=== PATIENT | male | born 1990 | race Caucasian/White ===

== ENCOUNTER 2016-08-21 19:06 | Emergency (ER) | payer SELFPAY ==
[~2016-08-21] VITALS: Ht 175.3 cm; Wt 102.7 kg
[~2016-08-21 19:06] MED LIST: DOXY100T PO; HYDR-3534 PO
[2016-08-21 19:12] VITALS: BP 112/45; PULSE 83; RESP 20; TEMP 98.5; O2SAT 97
[2016-08-21] MEDS ORDERED: SODIUM CHLOR 0.9% 1000 ML INJ 1,000 ML IV SCH (19:39)
--- NOTE | 2016-08-21 19:43 | PD ---
HPI Chief Complaint: Abdominal Pain Time Seen by Provider: 19:21 Travel History International Travel<30 days: No Contact w/Intl Traveler<30days: No Traveled to known affect area: No History of Present Illness HPI 25-year-old male here for evaluation of abdominal pain. The patient reports having left lateral quadrant abdominal pain for last 5 days. Initially the pain was intermittent, now more constant. He is unable to describe the pain, but states it is 7 out of 10, worse with movements and palpation. He denies nausea, vomiting, or diarrhea. No history of abdominal surgeries. No urinary symptoms. He did have a recent URI with cough/congestion, however states that these symptoms have improved. PFSH Past Medical History Asthma: Yes (as a child) Tetanus Vaccination: > 5 Years Influenza Vaccination: No Past Surgical History Surgical History: No Previous Surgery Social History Alcohol Use: Yes (RARE) Tobacco Use: Yes (12ppd) Substance Use: No Allergies-Medications (Allergen,Severity, Reaction): Coded Allergies: No Known Allergies (Unverified , 11/07/15) Reported Meds & Prescriptions Reported Meds & Active Scripts Active Protonix (Pantoprazole Sodium) 40 Mg Tab 40 Mg PO DAILY Review of Systems Except as stated in HPI: all other systems reviewed are Neg Physical Exam Narrative GENERAL: Well-developed, well-nourished, overweight, comfortable, no acute distress. SKIN: Focused skin assessment warm/dry. No rash. HEAD: Atraumatic. Normocephalic. EYES: Pupils equal and round. No scleral icterus. No injection or drainage. ENT: Mucous membranes pink and moist. NECK: Trachea midline. No JVD. CARDIOVASCULAR: Regular rate and rhythm. RESPIRATORY: No accessory muscle use. Clear to auscultation. Breath sounds equal bilaterally. GASTROINTESTINAL: Abdomen soft, nondistended. Mild left upper quadrant tenderness without peritoneal signs. Rest of abdomen is soft and nontender. No hernias. MUSCULOSKELETAL: No obvious deformities. No clubbing. No cyanosis. No edema. No CVA tenderness. NEUROLOGICAL: Awake and alert. No obvious cranial nerve deficits. Motor grossly within normal limits. Normal speech. PSYCHIATRIC: Appropriate mood and affect; insight and judgment normal. Data Data Last Documented VS Vital Signs Date Time Temp Pulse Resp B/P Pulse Ox O2 Delivery O2 Flow Rate FiO2 08/21/16 19:12 98.5 83 20 112/45 97 Orders Complete Blood Count With Diff (08/21/16 19:39) Comprehensive Metabolic Panel (08/21/16 19:39) Lipase (08/21/16:39) Prothrombin Time / Inr (Pt) (08/21/16:39) Act Partial Throm Time (Ptt) (08/21/16 19:39) Urinalysis - C+S If Indicated (08/21/16 19:39) Ct Abd/Pel W Iv Contrast(Rout) (08/21/16:39) Iv Access Insert/Monitor (08/21/16 19:39) Ecg Monitoring (08/21/16:39) Oximetry (08/21/16:39) Morphine Inj (Morphine Inj) (08/21/16 19:45) Pantoprazole Inj (Protonix Inj) (08/21/16 19:45) Sodium Chlor 0.9% 1000 Ml Inj (Ns 1000 M (08/21/16 19:39) Sodium Chloride 0.9% Flush (Ns Flush) (08/21/16 19:45) Al-Mag Hy-Si 40-40-4 Mg/Ml Liq (Mag-Al P (08/21/16 19:45) Lidocaine 2% Viscous (Xylocaine 2% Visco (08/21/16 19:45) MDM Medical Decision Making Medical Screen Exam Complete: Yes Emergency Medical Condition: Yes Medical Record Reviewed: Yes Differential Diagnosis Gastritis, peptic ulcer disease, hepatobiliary disease, pancreatitis, pyelonephritis, nephrolithiasis, UTI, diverticulitis, colitis Narrative Course Vital signs show heart rate 83, blood pressure 112/45, pulse ox 97% on room air , oral temp of 98.5F. After interviewing and assessing the patient, I told him I would like to do blood work and perform CT abdomen pelvis. Shortly afterwards, the patient refused to allow my nurse to draw labs, stating that he will pass out. He was told that lab work is important in making a diagnosis. He is pretty adamant that he does not wish to have lab work done today. He would like to leave AMA. He has a capacity to make this decision. He understands the risks of leaving AMA. He was told that he could return to the emergency department at any time and should return should he have any concerning symptoms. PMD follow-up this week. AMA: The risks of leaving against medical advice without further evaluation treatment were discussed with the patient. These risks include cardiac dysfunction, cardiac dysrhythmia, possible heart attack, possible stroke or . The patient indicated understanding of these risks and appeared to have the capacity to make this decision. Diagnosis Primary Impression: Left against medical advice Additional Impression: Abdominal pain Qualified Code: R10.12 - Left upper quadrant pain Referrals: Celestina Dumont MD 3 days [facility] Primary Care Physician 3 days Additional Instructions: Follow-up with a primary care physician this week. Follow-up with cover machine operator Dr. Dumont or a cover machine operator of your choice this week. Return to the emergency department for worsening symptoms or any other concerns. Scripts Pantoprazole (Protonix)40 Mg Tab40 Mg PO DAILY #30 TAB Ref 0 Prov:Luciano Romero MD 08/21/16 Disposition: 07 AGAINST MEDICAL ADVICE Condition: Stable Luciano Romero MD August 21, 2016 19:43
[2016-08-21] MEDS ORDERED: MORPHINE SULFATE 4 MG/ML INJ IV PUSH ONE (19:45)
[2016-08-21] MEDS ORDERED: ALUMINUM/MAGNESIUM/SIMETH 30 ML CUP PO ONE (19:45)
[2016-08-21] MEDS ORDERED: PANTOPRAZOLE SODIUM 40 MG VIAL IVP ONE (19:45)
[2016-08-21] MEDS ORDERED: SODIUM CHLORIDE 0.9% FLUSH 10 ML FLUSH IV FLUSH PRN (19:45)
[2016-08-21] MEDS ORDERED: LIDOCAINE VISCOUS 2% SOLN 15 ML UDC PO ONE (19:45)
[2016-08-21] MEDS ORDERED: PROT40TA PO (19:50)
== END 2016-08-21 20:05 | disposition left against medical advice (07) ==
LOC: PHED 19:06
DX: R10.12 Left upper quadrant pain (principal); F17.210 Nicotine dependence, cigarettes, uncomplicated

== ENCOUNTER 2017-03-12 10:12 | Emergency (ER) | payer SELFPAY ==
[~2017-03-12] VITALS: Ht 175.3 cm; Wt 101.5 kg
[~2017-03-12 10:12] MED LIST changes: -DOXY100T PO; -HYDR-3534 PO; +PROT40TA PO
[2017-03-12 10:14] VITALS: BP 120/71; PULSE 73; RESP 16; TEMP 98; O2SAT 97
[2017-03-12] MEDS ORDERED: SODIUM CHLORIDE 0.9% FLUSH 10 ML FLUSH IV FLUSH PRN (10:30)
--- NOTE | 2017-03-12 10:32 | PD ---
HPI Chief Complaint: Abdominal Pain Time Seen by Provider: 10:21 Travel History International Travel<30 days: No Contact w/Intl Traveler<30days: No Traveled to known affect area: No History of Present Illness HPI This patient complains of abdominal pain. Location is left lower quadrant. Duration 2 days. Severity is moderate. No vomiting or diarrhea or fever. He' s eating. Doesn't really affect his eating. Denies urinary complaints. No surgical history of the abdomen. No alleviating factors. No exacerbating factors. PFSH Past Medical History Asthma: Yes (as a child) Social History Alcohol Use: Yes (RARE) Tobacco Use: No Substance Use: No Allergies-Medications (Allergen,Severity, Reaction): Coded Allergies: No Known Allergies (Unverified Adverse Reaction, Unknown, 03/12/17) Reported Meds & Prescriptions Reported Meds & Active Scripts Active No Active Prescriptions or Reported Medications Review of Systems General / Constitutional: No: Fever Eyes: No: Visual changes HENT: No: Headaches Cardiovascular: No: Chest Pain or Discomfort Respiratory: No: Shortness of Breath Gastrointestinal: Positive: Abdominal Pain Genitourinary: No: Dysuria Musculoskeletal: No: Pain Skin: No Rash Neurologic: No: Weakness Psychiatric: No: Depression Endocrine: No: Polydipsia Hematologic/Lymphatic: No: Easy Bruising Physical Exam Narrative GENERAL: Well-nourished, well-developed patient in no apparent distress. SKIN: Focused skin assessment reveals no rash and nodules. Skin is Warm and dry. HEAD: Atraumatic. Normocephalic. EYES: Pupils equal and round. No scleral icterus. No injection or drainage. ENT: No nasal bleeding or discharge. Mucous membranes pink and moist. NECK: Trachea midline. No JVD. CARDIOVASCULAR: Regular rate and rhythm. No murmur appreciated. RESPIRATORY: No accessory muscle use. Clear to auscultation. Breath sounds equal bilaterally. GASTROINTESTINAL: Abdomen soft, mild left lower quadrant tenderness without rebound or guarding, nondistended. Hepatic and splenic margins not palpable. MUSCULOSKELETAL: No obvious deformities. No clubbing. No cyanosis. No edema. NEUROLOGICAL: Awake and alert. No obvious cranial nerve deficits. Motor grossly within normal limits. Normal speech. PSYCHIATRIC: Appropriate mood and affect; insight and judgment normal. Data Data Last Documented VS Vital Signs Date Time Temp Pulse Resp B/P (MAP) Pulse Ox O2 Delivery O2 Flow Rate FiO2 03/12/17 10:14 98.0 73 16 120/71 (87) 97 Orders Orders Basic Metabolic Panel (Bmp) (03/12/17 10:28) Complete Blood Count With Diff (03/12/17 10:28) Urinalysis - C+S If Indicated (03/12/17 10:28) Iv Access Insert/Monitor (03/12/17 10:28) Sodium Chloride 0.9% Flush (Ns Flush) (03/12/17 10:30) Labs Laboratory Tests Test 03/12/17 10:30 03/12/17 10:35 Urine Collection Type CLEAN CATCH Urine Color YELLOW Urine Turbidity CLEAR Urine pH 6.5 Urine Specific [place] 1.010 Urine Protein NEG mg/dL Urine Glucose (UA) NEG mg/dL Urine Ketones NEG mg/dL Urine Occult Blood NEG Urine Nitrite NEG Urine Bilirubin NEG Urine Leukocyte Esterase NEG Urine RBC 0-3 /hpf Urine Squamous Epithelial Cells 0-5 /hpf Microscopic Urinalysis Comment CULT NOT INDICATED Urine Collection Time 10:30 White Blood Count 8.6 TH/MM3 Red Blood Count 5.45 MIL/MM3 Hemoglobin 15.7 GM/DL Hematocrit 48.1 % Mean Corpuscular Volume 88.3 FL Mean Corpuscular Hemoglobin 28.8 PG Mean Corpuscular Hemoglobin Concent 32.6 % Red Cell Distribution Width 12.9 % Platelet Count 309 TH/MM3 Mean Platelet Volume 7.1 FL Neutrophils (%) (Auto) 65.9 % Lymphocytes (%) (Auto) 23.7 % Monocytes (%) (Auto) 4.4 % Eosinophils (%) (Auto) 5.3 % Basophils (%) (Auto) 0.7 % Neutrophils # (Auto) 5.6 TH/MM3 Lymphocytes # (Auto) 2.0 TH/MM3 Monocytes # (Auto) 0.4 TH/MM3 Eosinophils # (Auto) 0.5 TH/MM3 Basophils # (Auto) 0.1 TH/MM3 CBC Comment DIFF FINAL Differential Comment Blood Urea Nitrogen 9 MG/DL Creatinine 0.82 MG/DL Random Glucose 85 MG/DL Calcium Level 8.7 MG/DL Sodium Level 138 MEQ/L Potassium Level 4.2 MEQ/L Chloride Level 104 MEQ/L Carbon Dioxide Level 29.2 MEQ/L Anion Gap 5 MEQ/L Estimat Glomerular Filtration Rate 113 ML/MIN MDM Medical Decision Making Medical Screen Exam Complete: Yes Emergency Medical Condition: Yes Medical Record Reviewed: Yes Differential Diagnosis Irritable bowel syndrome, colitis, ileus Narrative Course I have reviewed the patient's electronic medical record. Was here twice for abdominal pain over the last year. Once she left AMA with no workup at that time he had a negative workup including labs and CT scan IV placed CBC is normal Metabolic profile is normal Urinalysis is clean Patient looks clinically well. I have no clinical suspicion of emergent intra- abdominal process. I don't think emergent imaging is indicated. Recommend primary care follow-up and advised him to return if he has significant worsening. Diagnosis Primary Impression: Abdominal pain Qualified Codes: R10.32 - Left lower quadrant pain Additional Instructions: The patient was advised to follow up with their physician and return if they worsen. Med/Other Pt SpecificInfo: Other Scripts No Active Prescriptions or Reported Meds Disposition: 01 DISCHARGE HOME Condition: Stable Se Farmer MD Mar 12, 2017 10:32
[2017-03-12 10:37] LABS: BLOOD, URINE NEG (NEG); GLUCOSE,URINE NEG (NEG); KETONE, URINE NEG (NEG); NITRITE,URINE NEG (NEG); PH, URINE 6.5 (5.0-8.5)
[2017-03-12 10:43] LABS: METHOD OF COLLECTION CLEAN CATCH; URINE COLOR YELLOW (YELLW/STRAW)
[2017-03-12 10:44] LABS: COMMENT (UR) CULT NOT INDICATED; CULTURE IF INDICATED CULT NOT INDICATED; RBC, URINE 0-3 /hpf (0-3); SQUAMOUS EPITHELIAL CELL URINE 0-5 /hpf (0-5)
[2017-03-12 10:47] LABS: AUTOMATED NEUTROPHIL # 5.6 TH/MM3 (1.8-7.7); BASOPHIL # 0.1 TH/MM3 (0-0.2); BASOPHIL % 0.7 % (0.0-2.0); EOSINOPHIL # 0.5 TH/MM3 (0-0.4); EOSINOPHIL % 5.3 % (0.0-4.0); HEMATOCRIT 48.1 % (39.0-51.0); HEMO FLAGS DIFF FINAL; LYMPH % 23.7 % (9.0-44.0); MEAN CELL VOLUME 88.3 FL (80.0-100.0); MEAN CORPUSCULAR HEMOGLOBIN 28.8 PG (27.0-34.0); MEAN CORPUSCULAR HGB CONC 32.6 % (32.0-36.0); MONO % 4.4 % (0.0-8.0); NEUT % 65.9 % (16.0-70.0); PLATELET COUNT 309 TH/MM3 (150-450); RED BLOOD COUNT 5.45 MIL/MM3 (4.50-5.90); RED CELL DISTRIBUTION WIDTH 12.9 % (11.6-17.2); WHITE BLOOD COUNT 8.6 TH/MM3 (4.0-11.0)
[2017-03-12 10:58] LABS: POTASSIUM 4.2 MEQ/L (3.5-5.1)
[2017-03-12 11:01] LABS: BICARBONATE 29.2 MEQ/L (21.0-32.0)
== END 2017-03-12 11:26 | disposition home or self-care (01) ==
LOC: PHED 10:12
DX: R10.32 Left lower quadrant pain (principal)
CPT/HCPCS: 80048; 81001; 85025; 99283